=== PATIENT | male | born 1950 | race Caucasian/White ===

== ENCOUNTER 2019-05-22 05:32 | Day surgery (SDC) | payer MEDICARE, BC ==
[2019-05-12 12:37] LABS: BASOPHILS % (AUTO) 0.5 % (0-1); EOSINOPHILS # (AUTO) 0.1 X10'3 (0-0.9); EOSINOPHILS % (AUTO) 1.5 % (0-6); LYMPHOCYTES # (AUTO) 1.4 X10'3 (1.1-4.8); MEAN CORPUSCULAR HEMOGLOBIN 31.8 PG (27.0-31.0); MEAN CORPUSCULAR HGB CONC 34.6 g/dL (33.0-36.5); MEAN CORPUSCULAR VOLUME 91.8 FL (78-98); MONOCYTES # (AUTO) 0.5 X10'3 (0-0.9); MONOCYTES % (AUTO) 6.3 % (2-12); NEUTROPHILS # (AUTO) 5.3 X10'3 (1.8-7.7); NEUTROPHILS % (AUTO) 72.7 % (42-75); PRE OP HEMATOCRIT 47.3 % (42.0-52.0); PRE OP HEMOGLOBIN 16.4 g/dL (14.0-17.9); PRE OP PLATELET COUNT 222 X10'3 (140-440); RED BLOOD COUNT 5.15 X10'6 (4.70-6.10); RED CELL DISTRIBUTION WIDTH 12.5 % (11.5-14.5)
[2019-05-12 12:50] LABS: PRE OP PROTIME 10.4 SECONDS (9.0-12.0)
[2019-05-12 12:54] LABS: ALBUMIN 3.9 G/DL (3.4-5.0); ALBUMIN/GLOBULIN RATIO 1.2 (1.1-1.5); ALKALINE PHOSPHATASE 103 IU/L (46-116); BLOOD UREA NITROGEN 12 MG/DL (7-18); BUN/CREATININE RATIO 12.8 (5.4-32.0); CALCIUM 9.1 MG/DL (8.5-10.1); CHLORIDE 108 MMOL/L (99-107); CREATININE 0.94 MG/DL (0.60-1.10); PRE OP ALT 30 U/L (30-65); PRE OP ANION GAP 5 (8-16); PRE OP AST 18 U/L (10-37); PRE OP BILIRUB, TOTAL 0.7 MG/DL (0.0-1.0); PRE OP GLUCOSE 96 MG/DL (70-104); PRE OP POTASSIUM 4.5 MMOL/L (3.4-5.1); PRE OP SODIUM 143 MMOL/L (135-145); TOTAL CARBON DIOXIDE 30.3 MMOL/L (24-32); TOTAL PROTEIN 7.2 G/DL (6.4-8.2); eGFR 80 ML/MIN
[2019-05-22] VITALS (15 sets, daily range): BP systolic 114–153; BP diastolic 69–98
[~2019-05-22] VITALS: Ht 172.7 cm; Wt 106.6 kg
[~2019-05-22 05:32] MED LIST: Cefazolin 2GM/100ML NS IVPB 100 ML IV ONE; PER5325T PO; TELM40TA5 PO; famotidine 20mg tablet PO ONE; ringers solution, lacted 1,000 ML IV SCH; vancomycin inj 1,500 MG in normal saline 300ml IV soln IV ONE
[2019-05-22] MEDS ORDERED: BUPIVAcaine/PF 2.5 mg/ml (0.25%) 30ml vial ONE (06:42)
[2019-05-22] MEDS ORDERED: LIDOcaine 2% (20mg/ml) 5ml vial ONE (06:49)
[2019-05-22] MEDS ORDERED: dexamethasone sod phosphate 4mg/ml inj. ONE (06:49)
[2019-05-22] MEDS ORDERED: midazolam 2 mg/2 ml injection ONE (06:49)
[2019-05-22] MEDS ORDERED: ondansetron/PF 4mg/2ml inj ONE (06:49)
[2019-05-22] MEDS ORDERED: propofol inj 20 ML IV ONE (06:49)
[2019-05-22] MEDS ORDERED: fentaNYL/PF 50MCG/1 ML 2ML syringe ONE ×2 (06:49→09:21)
[2019-05-22] MEDS ORDERED: ROPIVAcaine 0.5% (5mg/ml) 30ml vial ONE (06:50)
[2019-05-22] MEDS ORDERED: ringers solution, lacted 1,000 ML IV SCH (06:53)
[2019-05-22] MEDS ORDERED: morphine 4 MG/ML inj SYRINge IV PRN ×2 (06:55)
[2019-05-22] MEDS ORDERED: ondansetron/PF 4mg/2ml inj IV PRN ×2 (06:55→10:05)
[2019-05-22] MEDS ORDERED: hydrALAZINE 20mg/ml inj. IV PRN (06:55)
[2019-05-22] MEDS ORDERED: labetalol 20mg/4ml (5mg/ml) syringe IV PRN (06:55)
[2019-05-22] MEDS ORDERED: fentaNYL/PF 50MCG/1 ML 2ML syringe IV PRN ×2 (06:55)
[2019-05-22] MEDS ORDERED: sevoflurane 250ml liquid IH ONE (07:17)
[2019-05-22] MEDS ORDERED: ePHEDrine 50MG/ML INJ. ONE (08:20)
[2019-05-22] MEDS ORDERED: acetaminophen 1,000mg/100ml IV 100 ML IV ONE (08:44)
--- NOTE | 2019-05-22 09:59 | NUR ---
Received from OR via ORTHO BED WITH [facility] , accompanied by Anesthesiologist OMAIRA and report given by Anesthesiolgist. PATIENT WITH 20G PIV IN LEFT UE RUNNING LR AT 100. PATIENT WHIT + RADIAL PULSE TO RIGHT UE, UNABLE TO MOVE FINGERS AT THIS TIME. PATIENT WITH SLING ON, ANTERIOR RIGHT SHOULDER DRESSING IS CDI. PILLOW DONNED UNDER RIGHT ELBOW 2' NERVE BLOCK. SCDS DONNED. 10L MASK ON WITH 96% SATURATIONS. Addendum: 05/22/19 at 1011 by John Mayer RN, RN Amended: Links added.
[2019-05-22] MEDS ORDERED: acetaminophen 325mg tablet PO PRN (10:05)
[2019-05-22] MEDS ORDERED: diphenhydrAMINE 25mg capsule PO PRN ×2 (10:05)
[2019-05-22] MEDS ORDERED: bisacodyl 10mg suppository rectal RC PRN (10:05)
[2019-05-22] MEDS ORDERED: magnesium hydroxide 30ml (MOM) UD suspension PO PRN (10:05)
--- NOTE | 2019-05-22 10:49 | NUR ---
ALL CRITERIA FOR TRANSFER TO THE FLOOR HAS BEEN ACHIEVED. VSS. BED LOW, CALL LIGHT AND VS. SET IN PLACE. RN PRESENT TO ACCEPT CARE. PATIENT RESTING COMFORTABLY IN BED. BELONGINGS SENT WITH PATIENT. DRESSINGS CDI. JOE ESPINOSA PRESENT TO ACCEPT CARE. VSS. PATIENT WITH BILAT HEARING AIDS IN PLACE AND GLASSES ON. ONE BAG OF BELONGINGS DELIVERED WE.. CARE TURNED OVER TO FRANCISCA DIAZ. Addendum: 05/22/19 at 1102 by John Larson - JOE DIAZ Amended: Links added.
[2019-05-22] MEDS: ceFAZolin 1GM/D5W- ADD-VANTAGE 50 ML IV SCH (17:06)
[2019-05-22] MEDS: potassium Cl 20mEq in NS 1,000 ML IV SCH ×2 (17:08→23:21)
--- NOTE | 2019-05-22 18:17 | NUR ---
Problems reprioritized. Patient report given, questions answered & plan of care reviewed with Mynor Herman.
--- NOTE | 2019-05-22 19:00 | NUR ---
Patient in room ORTHO 4011. I have received report from and had the opportunity to ask questions and assume patient care.
[2019-05-22] MEDS ORDERED: vancomycin/NS 1 GM ADD-VANTAGE 250 ML IV SCH (20:00)
[2019-05-22] MEDS ORDERED: sennosides 8.6mg tablet PO SCH (21:00)
[2019-05-22] MEDS: oxyCODONE IR 5mg (immed. release) tablet PO PRN (22:13)
[2019-05-23] MEDS: ceFAZolin 1GM/D5W- ADD-VANTAGE 50 ML IV SCH (00:44)
[2019-05-23] MEDS: oxyCODONE IR 5mg (immed. release) tablet PO PRN ×3 (05:45→13:06)
[2019-05-23 06:00] VITALS: BP 139/80
--- NOTE | 2019-05-23 06:30 | NUR ---
Patient in room ORTHO 4011. I have received report from LAURA DIAZ and had the opportunity to ask questions and assume patient care.
[2019-05-23] MEDS: potassium Cl 20mEq in NS 1,000 ML IV SCH (07:18)
[2019-05-23] MEDS ORDERED: losartan 50mg tablet PO SCH (08:00)
[2019-05-23 09:27] VITALS: BP 142/88
[2019-05-23] MEDS: ketorolac tromethamine 15mg/ml inj. IV SCH ×2 (12:01→14:00)
[2019-05-23] MEDS ORDERED: ketorolac tromethamine 15mg/ml inj. IM SCH (14:00)
--- NOTE | 2019-05-23 15:55 | NUR ---
Student documentation: I have reviewed and agree with all interventions, assessments performed and documented by JAIR RUEDA. Student Medication Administration: For this medication-pass time frame, all medication were reviewed, dispensed, administered and documented per hospital policy by JAIR RUEDA.
== END 2019-05-23 15:55 | disposition home or self-care (01) ==
LOC: PAS 05:32 → ORTHO 4S 10:06 → PAS 05-23 15:55
PROVIDERS: ATTEND Orthopaedic Surgery
DX: S46.011A Strain of muscle(s) and tendon(s) of the rotator cuff of right shoulder, initial encounter (principal); M19.011 Primary osteoarthritis, right shoulder; M75.21 Bicipital tendinitis, right shoulder; G89.18 Other acute postprocedural pain; I10 Essential (primary) hypertension; Z98.890 Other specified postprocedural states; Z79.899 Other long term (current) drug therapy; Z79.01 Long term (current) use of anticoagulants; X58.XXXA Exposure to other specified factors, initial encounter; Y93.89 Activity, other specified; Y92.89 Other specified places as the place of occurrence of the external cause; Y99.8 Other external cause status
CPT/HCPCS: 23120; 23130; 23412; 23430; 36415; 64415; 80053; 82948; 85025; 85610; 85730; 93005; A6223; C1713; J0131; J0690; J1100; J1885; J2001; J2250; J2405; J2704; J3010; J3370; J3480; J3490; J7120; A4565; A4618; A6253; A6449; A7000; G0378; J2795